=== PATIENT | male | born 1955 | race Caucasian/White ===

== ENCOUNTER → 2019-12-30 09:12 | Outpatient (BNVA) | payer BC, SELFPAY | PROVIDERS: Family Provider Nurse Practitioner Family; PCP Nurse Practitioner Family; Visit Provider Urology | DX: R97.20 Elevated prostate specific antigen [PSA] (principal); N40.1 Benign prostatic hyperplasia with lower urinary tract symptoms | CPT/HCPCS: 81001; 84153 ==

== ENCOUNTER → 2022-08-30 09:44 | Outpatient (BNVA) | payer MEDICARE, SELFPAY | PROVIDERS: Family Provider Nurse Practitioner Family; PCP Nurse Practitioner Family; Referring Provider Nurse Practitioner Family; Visit Provider Student in an Organized Health Care Education/Training Program | DX: M25.569 Pain in unspecified knee (principal); M17.11 Unilateral primary osteoarthritis, right knee; E11.9 Type 2 diabetes mellitus without complications | CPT/HCPCS: 36415; 80053; 83036; 85025; 99204 ==

== ENCOUNTER → 2022-08-30 10:21 | Outpatient (BNVA) | payer MEDICARE, SELFPAY | PROVIDERS: Family Provider Nurse Practitioner Family; PCP Nurse Practitioner Family; Referring Provider Nurse Practitioner Family; Visit Provider Student in an Organized Health Care Education/Training Program | DX: M17.11 Unilateral primary osteoarthritis, right knee (principal); E11.9 Type 2 diabetes mellitus without complications; Z79.84 Long term (current) use of oral hypoglycemic drugs; Z79.4 Long term (current) use of insulin | CPT/HCPCS: 73560; 73565 ==

== ENCOUNTER → 2024-10-07 13:04 | Outpatient (BNVA) | payer MEDICARE, SELFPAY | PROVIDERS: PCP Nurse Practitioner Acute Care; Visit Provider Physician Assistant | DX: M17.11 Unilateral primary osteoarthritis, right knee (principal); M25.569 Pain in unspecified knee | CPT/HCPCS: 73560; 73565; 99214 ==

== ENCOUNTER → 2024-11-11 14:04 | Outpatient (BNVA) | payer MEDICARE, SELFPAY | PROVIDERS: PCP Nurse Practitioner Acute Care; Visit Provider Physician Assistant | DX: M17.11 Unilateral primary osteoarthritis, right knee (principal) | CPT/HCPCS: 99213 ==

== ENCOUNTER 2024-12-07 12:21 | Outpatient (CLI) | payer MEDICARE, SELFPAY ==
--- NOTE | 2024-12-07 13:00 | CT_ITS ---
WS: [id number] CT RIGHT knee, noncontrast HISTORY: M17.11 - Unilateral primary osteoarthritis, right knee TECHNIQUE: Protocol for [facility] total knee replacement has been obtained. This includes axial imaging through the RIGHT hip, RIGHT knee and RIGHT ankle. DLP: 1031.47 mGy.cm COMPARISON: None available. Hips: Mild narrowing of the SI joints. No destructive bone lesions. Fat- containing RIGHT inguinal hernia. RIGHT knee: Advanced tricompartment joint space narrowing with osteophytes. Small suprapatellar joint effusion. Scattered popliteal artery atherosclerotic plaque. RIGHT ankle: Negative. CT/CT knee RT [facility] [id number] IMPRESSION: CT imaging provided for [facility] robotic total knee replacement.
== END 2024-12-07 12:22 | disposition home or self-care (01) ==
LOC: RAD 12:24
PROVIDERS: PCP Nurse Practitioner Acute Care; Visit Provider Student in an Organized Health Care Education/Training Program
DX: M17.11 Unilateral primary osteoarthritis, right knee (principal); K40.90 Unilateral inguinal hernia, without obstruction or gangrene, not specified as recurrent; M25.761 Osteophyte, right knee; M25.461 Effusion, right knee; I70.208 Unspecified atherosclerosis of native arteries of extremities, other extremity
CPT/HCPCS: 73700

== ENCOUNTER → 2024-12-28 15:38 | Outpatient (BNVA) | payer MEDICARE, SELFPAY | PROVIDERS: PCP Nurse Practitioner Acute Care; Visit Provider Family Medicine | DX: I25.10 Atherosclerotic heart disease of native coronary artery without angina pectoris (principal); J44.9 Chronic obstructive pulmonary disease, unspecified; E11.9 Type 2 diabetes mellitus without complications | CPT/HCPCS: 80053; 80061; 81000; 83735; 83880; 85025 ==

== ENCOUNTER 2024-12-31 11:23 | Outpatient (CLI) | payer MEDICARE, SELFPAY ==
[2024-12-31 12:21] LABS: Add Urine Microscopic? NO
[2024-12-31 12:23] LABS: Hematocrit 50.9 % (37-53); Hemoglobin 16.10 g/dL (11.27-16.99); Mean Corpuscular HGB Conc 31.6 g/dL (30-55); Mean Corpuscular Hemoglobin 27.2 pg (27-33); Mean Corpuscular Volume 86.0 fl (82-101); Nucleated Red Blood Cells % 0 %; Platelet Count 190 10^3/cmm (157-399); Red Blood Count 5.92 10^6/uL (3.85-5.65); White Blood Count 10.60 10^3/uL (3.29-11.43)
[2024-12-31 12:37] LABS: Glucose Urine UA 3+ (Normal); Nitrate Urine Negative (Negative)
[2024-12-31 12:42] LABS: Specific Gravity, Urine 1.045 (1.005-1.030)
[2024-12-31 12:43] LABS: Charge for UA Resulting for Rev
[2024-12-31 12:47] LABS: Alanine Aminotransferase 24 U/L (0-41); Albumin Level 4.3 g/dL (3.5-5.2); Alkaline Phosphatase 75 U/L (40-130); Anion Gap 18.9 (5-19); Aspartate Amino Transferase 19 U/L (0-40); Blood Urea Nitrogen 20 mg/dL (8-23); Calcium 10.0 mg/dL (8.5-10.5); Carbon Dioxide 24 mmol/L (22-29); Chloride 98 mmol/L (98-107); Globulin 3.0 g/dL (1.3-4.6); Glucose 174 mg/dL (65-115); Osmolality Calculated 289 mOsm/kg (285-295); Potassium 4.9 mmol/L (3.5-5.1); Sodium 136 mmol/L (136-145); Total Protein 7.3 g/dL (6.6-8.7)
[2024-12-31 12:49] LABS: Estmated Average Glucose 160; Hemoglobin A1C 7.2 % (4.0-6.0)
== END 2024-12-31 11:24 | disposition home or self-care (01) ==
LOC: LAB 11:25
PROVIDERS: PCP Nurse Practitioner Acute Care; Visit Provider Student in an Organized Health Care Education/Training Program
DX: Z01.818 Encounter for other preprocedural examination (principal); E11.9 Type 2 diabetes mellitus without complications
CPT/HCPCS: 36415; 80053; 81003; 83036; 85025

== ENCOUNTER 2025-01-04 15:32 | Observation (INO) | payer MEDICARE, SELFPAY ==
[2025-01-04] VITALS (24 sets, daily range): BP systolic 112–157; BP diastolic 67–92; PULSE 74–90; RESP 12–18; TEMP 36.1–36.8; O2SAT 91–97; BMI 36.1
[2025-01-04] MEDS: acetaminophen 1,000 MG/100 ML PIGGYBACK 400 MG IV ×3 (06:13→19:28)
--- NOTE | 2025-01-04 06:55 | PC.NURSE ---
Dr Agee place Ropivacine [address] in Right knee. Pt tolerated well.
--- NOTE | 2025-01-04 06:57 | ANES.PREANE2 ---
Pre-Anesthetic Assessment Height/Weight: Height 1.78 m Weight 114.305 kg Temp Pulse Resp BP Pulse Ox O2 Del Method 97.3 F L 88 18 131/92 94 Room Air 01/04/25 06:00 01/04/25 06:00 01/04/25 06:00 01/04/25 06:00 01/04/25 06:00 01/04/25 06:00 Operation Date: 01/04/25 07:00 Proposed Procedures p RIGHT Allan Robot Total Knee Arthroplasty(Right) - Kj Peterson DO Familial anesthetic complications: None Was Beta Quinn taken within 24 hours: Yes Was Clonidine taken within 24 hours: N/A Last intake: Intake Last Liquid Date 01/04/25 Last Liquid Time 19:30 Last Solid Date 01/03/25 Last Solid Time 19:30 Social No alcohol and No tobacco Exam alert, oriented x 3, clear to auscultation bilaterally and regular rate & rhythm Airway Mallampati: Class IV Pulmonary Chronic Obstructive Pulmonary Disease CV/HEM Coronary Artery Disease (2 stents 2 years ago) and Hypertension GI Gastroesophageal Reflux Disease Metabolic Diabetes Mellitus, Hyperlipidemia and Morbid Obesity Anesthetic Plan ASA status: 3 Anesthesia: General and Regional (specify below) Risk of > 500 ml blood loss (7ml/kg in children): No Other Pertinent Information Plavix on Medications/Allergies Home Medications ?Medication ?Instructions ?Recorded ?Confirmed ?Last Taken ?Type aspirin 81 mg tablet,delayed 81 mg PO DAILY 12/30/19 01/01/25 12/28/24 History release (Adult Aspirin Regimen) fluticasone propionate 50 2 spray intranasal DAILY 10/07/24 01/01/25 01/04/25 05:15 History mcg/actuation nasal spray,suspension nitroglycerin 0.4 mg sublingual 0.4 mg sublingual Q5M PRN Chest 10/07/24 01/01/25 Unknown History tablet Pain pen needle, diabetic 32 gauge x #1,200 ea 10/07/24 12/28/24 Unknown History (Marilin 2nd Gen Pen Needle) carvedilol 6.25 mg tablet 6.25 mg PO BID 12/28/24 01/01/25 01/04/25 05:15 History celecoxib 200 mg capsule 200 mg PO BID 12/28/24 01/01/25 12/28/24 History clopidogrel 75 mg tablet 75 mg PO QDAY 12/28/24 01/01/25 12/29/24 History empagliflozin 10 mg tablet 10 mg PO QDAY 12/28/24 01/01/25 01/01/25 History (Jardiance) eplerenone 25 mg tablet 25 mg PO QDAY 12/28/24 01/01/25 01/01/25 History fluticasone 250 mcg-salmeterol 50 1 inh inhalation BID 12/28/24 01/01/25 01/01/25 History mcg/dose blistr powdr for inhalation insulin glargine 100 unit/mL (3 80 unit SUBCUT BID 12/28/24 01/01/25 01/04/25 05:15 History mL) subcutaneous pen (Lantus 80 unit Solostar U-100 Insulin) isosorbide mononitrate 30 mg 30 mg PO QDAY 12/28/24 01/01/25 01/04/25 05:15 History tablet,extended release 24 hr metformin 500 mg tablet,extended 1,000 mg PO BID 12/28/24 01/01/25 01/01/25 History release 24 hr pantoprazole 40 mg tablet,delayed 40 mg PO QDAY 12/28/24 01/01/25 01/04/25 05:15 History release rosuvastatin 20 mg tablet 20 mg PO QDAY 12/28/24 01/01/25 01/01/25 History tirzepatide 7.5 mg/0.5 mL 7.5 mg SUBCUT .weekly 12/28/24 01/01/25 12/28/24 History subcutaneous pen injector (Mounjaro) finasteride 5 mg tablet 5 mg PO DAILY 12/31/24 01/01/25 01/01/25 History Allergies Allergy/AdvReac Type Severity Reaction Status Date / Time morphine Allergy Unknown Unknown Verified 01/04/25 05:51 tadalafil (From Cialis) Allergy Unknown Unknown Verified 01/04/25 05:51 [facility] Anesthesia Medical History (Updated 12/28/24 @ 16:09 by Jozef Villasenor MD) COPD (chronic obstructive pulmonary disease) Coronary artery disease Benign prostatic hyperplasia with lower urinary tract symptoms Elevated PSA Erectile dysfunction Diabetes Lumbar spondylolysis Surgical History Hx of left inguinal hernia repair History of surgery on right wrist Hx of arthroscopy of right knee Family History Father , AT AGE 69 LUNG CANCER Cancer Mother Cancer LUNG CANCER Social History Smoking and tobacco/nicotine status: never used tobacco/nicotine Alcohol intake: current Alcohol intake frequency: holidays/special occasions only Substance/Drug Use: unknown Adopted: No Caregiver/support person: No Lives independently: No Household members: spouse Marital status: Current occupational status: retired Anesthesia Procedures Nerve Block Nerve Block 1: Main Anesthesia: general anesthesia Time Out Performed: Yes Consent: requested by attending/covering physician, from patient, from other, risks and benefits reviewed and patient agrees to proceed Nerve block location: adductor canal (R) Anesthesia monitors applied: pulse oximetry, EKG, BP cuff and oxygen Nerve block position: supine Anesthetic Used: ropivicaine 0.5% (30 ml) and with decadron (4 mg) Ultrasound used to: recognize landmarks and visualize and ID femerol nerve Interscalene/Femoral BLK: 4 stimuplex 21 g needle used for position and inplane approach, visualize local anesthetic spread and no vascular puncture identified Injection: neg aspiration of heme Patient Tolerated Procedure: well Complications: none
--- NOTE | 2025-01-04 07:06 | W.PM.OPSFHP ---
Same Day Surgery H&P Indication for Procedure/HPI DATE OF PROCEDURE: January 04, 2025 CHIEF COMPLAINT/INDICATIONFOR SURGICAL PROCEDURE: Right knee DJD PREOP DIAGNOSIS: Right knee DJD PLANNED PROCEDURE: Operation Date: 01/04/25 07:00 Proposed Procedures p RIGHT Allan Robot Total Knee Arthroplasty(Right) - Kj Peterson, DO Medications/Allergies* Home Medications ?Medication ?Instructions ?Recorded ?Confirmed ?Type aspirin 81 mg tablet,delayed 81 mg PO DAILY 12/30/19 01/01/25 History release (Adult Aspirin Regimen) fluticasone propionate 50 2 spray intranasal DAILY 10/07/24 01/01/25 History mcg/actuation nasal spray,suspension nitroglycerin 0.4 mg sublingual 0.4 mg sublingual Q5M PRN Chest 10/07/24 01/01/25 History tablet Pain pen needle, diabetic 32 gauge x #1,200 ea 10/07/24 12/28/24 History 5/32 (Marilin 2nd Gen Pen Needle) carvedilol 6.25 mg tablet 6.25 mg PO BID 12/28/24 01/01/25 History celecoxib 200 mg capsule 200 mg PO BID 12/28/24 01/01/25 History clopidogrel 75 mg tablet 75 mg PO QDAY 12/28/24 01/01/25 History empagliflozin 10 mg tablet 10 mg PO QDAY 12/28/24 01/01/25 History (Jardiance) eplerenone 25 mg tablet 25 mg PO QDAY 12/28/24 01/01/25 History fluticasone 250 mcg-salmeterol 50 1 inh inhalation BID 12/28/24 01/01/25 History mcg/dose blistr powdr for inhalation insulin glargine 100 unit/mL (3 80 unit SUBCUT BID 12/28/24 01/01/25 History mL) subcutaneous pen (Lantus Solostar U-100 Insulin) isosorbide mononitrate 30 mg 30 mg PO QDAY 12/28/24 01/01/25 History tablet,extended release 24 hr metformin 500 mg tablet,extended 1,000 mg PO BID 12/28/24 01/01/25 History release 24 hr pantoprazole 40 mg tablet,delayed 40 mg PO QDAY 12/28/24 01/01/25 History release rosuvastatin 20 mg tablet 20 mg PO QDAY 12/28/24 01/01/25 History tirzepatide 7.5 mg/0.5 mL 7.5 mg SUBCUT .weekly 12/28/24 01/01/25 History subcutaneous pen injector (Mounjaro) finasteride 5 mg tablet 5 mg PO DAILY 12/31/24 01/01/25 History Allergies/Adverse Reactions Allergy/AdvReac Type Severity Reaction Status Date / Time morphine Allergy Unknown Unknown Verified 01/04/25 05:51 tadalafil (From Cialis) Allergy Unknown Unknown Verified 01/04/25 05:51 Pertinent History/Comorbid Conditions* Medical History (Updated 12/28/24 @ 16:09 by Jozef Villasenor MD) COPD (chronic obstructive pulmonary disease) Coronary artery disease Benign prostatic hyperplasia with lower urinary tract symptoms Elevated PSA Erectile dysfunction Diabetes Lumbar spondylolysis Surgical History (Updated 12/30/19 @ 12:41 by Izaiah Hill MD) Hx of left inguinal hernia repair History of surgery on right wrist Hx of arthroscopy of right knee Family History (Updated 12/22/19 @ 10:58 by TIFFANI Gleason) Father, AT AGE 69 LUNG CANCER Cancer Father Mother LUNG CANCER Social History Smoking and tobacco/nicotine status: never used tobacco/nicotine Alcohol intake: current Alcohol intake frequency: holidays/special occasions only Substance/Drug Use: unknown Adopted: No Caregiver/support person: No Lives independently: No Household members: spouse Marital status: Current occupational status: retired Pertinent Exam Findings alert, oriented x 3, operative site marked and procedure specific exam findings Please refer to detailed orthopedic examination on 11/11/2024 listed below: Right Knee exam -Patella crepitus with range of motion and positive joint effusion - full ROM -Medial lateral joint line tenderness -Negative Barbara's -Negative valgus, negative varus -negative Surekha's test with pain and no clicking -Patient can wiggle toes and has a pedal pulse of 2+. Recommendations Risks and benefits of procedure reviewed and Patient/family agree to proceed Surgery/Procedure today Other Plans: Plan to proceed to the OR today for right total knee arthroplasty?Allan robotic assisted. Patient is cleared the preoperative clearance process we detailed the ins and outs of the procedure the risk benefits complication alternatives surgical nonsurgical treatment options. Understanding risk of surgery patient elects proceed with surgical invention all questions answered at this time. His A1c is 7.20 he is cleared the preoperative clearance process, no injections in the last 90 days. Understanding his risk of surgery patient like to proceed with surgical invention all questions answered at this time. Coding Level of Care Code Acute Code for Chg Ralph
[2025-01-04] MEDS: ceFAZolin 2,000 MG in sodium chloride 0.9% (plus) 50 ML 100 MG IV ×3 (07:09→20:00)
[2025-01-04] MEDS: tranexamic acid 1,000 MG/100 ML PREMIX 600 MG IV ×2 (07:20→14:41)
[2025-01-04] MEDS: tranexamic acid 1,000 mg/10mL SDV 1000 MG XX (07:56)
[2025-01-04 08:38] LABS: Hematocrit 48.4 % (37-53); Hemoglobin 15.50 g/dL (11.27-16.99); Mean Corpuscular HGB Conc 32.0 g/dL (30-55); Mean Corpuscular Hemoglobin 26.6 pg (27-33); Mean Corpuscular Volume 83.0 fl (82-101); Nucleated Red Blood Cells % 0 %; Platelet Count 197 10^3/cmm (157-399); Red Blood Count 5.83 10^6/uL (3.85-5.65); White Blood Count 8.52 10^3/uL (3.29-11.43)
[2025-01-04 08:53] LABS: Anion Gap 19.0 (5-19); Blood Urea Nitrogen 19 mg/dL (8-23); Calcium 9.1 mg/dL (8.5-10.5); Carbon Dioxide 23 mmol/L (22-29); Chloride 99 mmol/L (98-107); Creatinine Clr Calc Pharmacy 113.4567; Glucose 162 mg/dL (65-115); Osmolality Calculated 290 mOsm/kg (285-295); Potassium 4.0 mmol/L (3.5-5.1); Sodium 137 mmol/L (136-145)
[2025-01-04] MEDS: ROPivacaine 0.2% Premix 100 mL 200 MG INTRA-ARTI (09:15)
--- NOTE | 2025-01-04 09:23 | P.BOP_ITS ---
Date of Procedure: 01/04/2025 Surgeon: Kj Peterson DO Rv Service Technician(s): Faraz Peterson PA-C Procedure(s) performed: Right total knee arthroplasty?Allan robotic assisted Findings of the procedure(s): Underwent procedure as planned without issues or complications taken recovery in stable condition Estimated blood loss: 25 mL Specimen(s) removed: Tibia femur patellar bone cuts removed Post-operative diagnosis: Right knee DJD
--- NOTE | 2025-01-04 09:24 | PM.OP ---
Operative Report Date of procedure: January 04, 2025 Surgeon: Kj Peterson DO Navigation Teacher: Faraz Peterson PA-C: PA was necessary for assistance in this case with leg positioning retraction and protection of neurovascular structures as well as assistance in implantation wound closure and dressing application. Procedure: Preoperative diagnosis: Right knee degenerative joint disease Post-op diagnosis: Same Procedure done: Right total knee arthroplasty, cemented?robotic assisted Allan Implants: Vivian triathlon size 7 femur CR cemented?Right Vivian triathlon size? 6 tibia universal baseplate cemented Spencer triathlon symmetric patella size 36 mm Vivian triathlon polyethylene 11mm Surgeon: Kj Peterson DO Estimated blood?loss: 25 mL Tourniquet 73minutes IV fluids: 1600 mL Urine output: 200 mL Complications: None Condition: stable Disposition: floor Brief History: Patient is a 69-year-old female with with chronic?Right knee degenerative joint disease.? Patient has been worked up in the outpatient setting in the orthopedic office at this point time through shared decision making given? gwve-nt-buak arthritis as well as failed conservative treatment, and pt would?like to proceed with a?Right total knee arthroplasty.? Through shared decision making elected to proceed with surgical intervention for?Right total knee arthroplasty?Allan robotic assisted.? We talked about continued conservative treatment and surgical intervention as far as the risk benefits complications alternatives surgical and nonsurgical treatment options.? At this point time understanding patient risks with surgery he agrees to proceed with surgical intervention.? Once again? risk with surgery include but are not?limited to make it better make it worse blood clot, heart attack, stroke, on the table, infection, injury to nerves or vessels, persistent pain, arthrofibrosis, implant failure.? Understanding these risks patient agrees to proceed with surgical intervention consent was obtained in the preoperative holding area.? All questions answered. Procedure: Patient was seen and evaluated in the preoperative holding area.? Consent was reviewed and signed with patient with plan for?Right total knee arthroplasty.? All questions answered.? Correct extremity marked.? Patient seen and evaluated by the anesthesia department and once cleared for surgery was taken back to the operative suite.? Patient was placed into a supine position on the OR table.? All bony prominences were well-padded.? Patient was appropriately secured to the bed.? Patient underwent anesthesia per the anesthesia department.? Patient received anesthesia and? Paz catheter was placed.? A nonsterile tourniquet was applied to the?Right thigh.? At this point in time a final timeout performed.? Patient received appropriate preoperative antibiotics and TXA. Next the?Right?lower extremity was then prepped and draped in standard orthopedic fashion. Esmarch tourniquet was used exsanguinate the?Right?lower extremity.? Tourniquet was insufflated to 250 mmHg. A standard anterior incision was made over midline of the knee.? Sharp scalpel excision through skin and subcutaneous tissue full-thickness skin flaps were made.? Fascia was elevated off of the extensor retinaculum was stable with medial parapatellar arthrotomy was then made.? The performed standard sequential releases..? Immediately on entry into the joint patient was found to have severe eburnated bone and tricompartmental arthritic changes noted.? With significant osteophyte formation.? Next the the patella was then stuffed and the knee was then flexed.?? Delaney was placed superiorly around the anterior aspect of the femur this was freed of synovium and I subsequently then placed by 2 femur pins to establish my femur arrays for the Allan robot.? These were then placed bicortically and? femur array was then appropriately secured with appropriate visualization.? Next attention was turned towards the tibial rays.? These were then drilled sequentially bicortically in parallel fashion and intraincisional.? I then placed my guide as well as my tibial array on in place.? This was appropriately secured and had excellent visualization with the Allan robot.? Next the tibial checkpoint as well as femur checkpoint were then placed.? At this point time I then subsequently established my head center as well as my medial?lateral malleoli as well as my checkpoints.? Next utilizing standard Allan technology I then mapped out the appropriate points and confirmation points around the femur as well as the tibia in standard fashion.? Once this was then done I then removed all osteophytes in preparation for dynamic testing.? All osteophytes were removed as well as I removed the ACL and the PCL was excised due to its significant tearing and degeneration noted.? At this point time the knee was brought into full extension and we performed our standard evaluation of our gap balancing stressing his?ligaments and extension as well as flexion appropriate adjustments were made to have appropriate gap balancing in both flexion and extension.? Patient had varus deformity and flexion contracture of roughly 10 to 15 degrees we made satisfactory adjustments to correct deformity within patient's ligamentous tolerances and plan for final cuts. We get a preoperative plan evaluating our implants which was a size 7 femur and a size 6 tibia.? Next we brought in the Allan robot and sequentially made our femur cuts.? All excess bony cuts were then removed.? Finally we made our tibial cut.? Once this was done a standard PCL retractor was then placed into this position I excised the medial and?lateral meniscus.? The tibial cut was then subsequently removed all excess bony debris was removed.? I then utilized a?lamina carroting machine offbearer and remove the posterior osteophytes.? At this point time sized the tibia and confirmed this was a size 6.? I utilized our blunt probe to establish rotation of tibial implant.? Once this was done I then placed my tibia size 6 trial in appropriate position and then subsequently placed tibial pins to hold this into place, and trialed up to a size 11 mm poly as well as a size 7 femur which was appropriately impacted in place knee was then subsequently brought into extension. Trials were then assessed,? this was stable with varus valgus stress in extension as well as had symmetrical translation when brought into flexion demonstrating symmetrical gaps. I had excellent balance gaps in flexion and extension with varus and valgus stresses.? At this point I was satisfied with these implants these were then verified and opened on the back table size 6 tibia, size 7 femur,? size 11 mm polythickness.? We did confirm appropriate gap balancing and stresses as well as alignment utilizing? Allan and were satisfied with this plan.? ?At this point time with my trials in place I then towel clip the patella everted this made appropriate measurements subsequently utilizing freehand technique performed by patellar resurfacing this was confirmed to be appropriate resection and subsequently sized to be a 36 mm symmetric.? My drill peg guides were then clamped and appropriate position and appropriate position in the patella for appropriate tracking and parallel with the joint.? Pegs were drilled trial implant was placed and the knee was then subsequently ranged and found to have excellent patellar tracking.? Femur pegs were then drilled.?All checkpoints as well as guidepins and arrays were removed and appropriate counts made. Satisfied with our tibial placement rotation I then utilized the keel punch and prepped the tibia.? At this point time all of our trial implants were removed.? ? The wound bed? was thoroughly irrigated and dried and prepped for cementation.? Cement was mixed on the back table.? Once cement was ready this was then covered onto the tibia and the tibial baseplate was then impacted and all excess cement was removed.? Next the polyethylene was then impacted into place on the tibial baseplate.? Next cement was placed onto the femur as well as under the femur implants and impacted in to place and all excess cement was extruded and removed.? Knee was taken into full extension? to clear all excess cement was removed.? Warm saline was placed over the joint.? I then towel clip patella and dried for cementation. cemented the patella into place.? This was all clamped and the cement was allowed to cure.? Thorough irrigation performed with pulse?lavage.? I then placed my periarticular injection while the cement was curing.? Once cured the knee was taken through range of motion and had excellent stability and gaps were balanced in flexion and extension.? Tourniquet was then deflated. hemostasis satisfactory with electrocautery. Vancomycin powder was placed in wound bed for antibiotic infection prophylaxis next I then subsequently closed the capsule with Ethibond suture as well as a running strata fix suture.? Knee was then taken through range of motion 30 times.? Next the skin was then closed in?layered fashion of interrupted Vicryl suture for subcutaneous tissue, patient was closed in flexion and skin was approximated with connie,? ?Incision was covered with feng incisional VAC, with ABDs soft roll and Johan wrap.? Patient was then awakened from anesthesia and taken to PACU in stable condition. Disposition: Patient taken to PACU in stable condition will be admitted to the floor for pain control PT/OT weight-bear as tolerated?Right?lower extremity dressing changes as needed, DVT prophylaxis. Pain control. Patient will receive appropriate postoperative antibiotics. patient will be seen today by the internal medicine team for medical management.? Patient will follow up with the office in 2 weeks.? Patient understands agrees with current plan.? All questions answered.
--- NOTE | 2025-01-04 09:35 | XR_ITS ---
WS: [id number] XR knee RT 1-2V [id number] REASON FOR EXAM: post L TKA FINDINGS: Total right knee arthroplasty. The components of the arthroplasty are intact and in proper position and alignment. No focal bone abnormality. XR/XR knee RT 1-2V [id number] IMPRESSION: Total right knee arthroplasty without significant abnormality.
[2025-01-04] MEDS: fentaNYL 50 mcg/mL INJ 2mL IVP ×2 (09:48→09:58)
--- NOTE | 2025-01-04 10:00 | PM.PACU ---
PACU note Narrative: Patient is a 69-year-old male that just underwent a right total knee arthroplasty. Pt transferred to PACU in stable condition. Dressing is dry. pt is awake and alert. pt can wiggle toes and plantarflex and dorsiflex foot. pt able to perform straight leg raise, Femoral nerve intact. Distal pulses are palpable toes are warm and well-perfused. Cap refill is normal and under 2 seconds. Sensation to foot is intact. Pain is controlled. Exam: awake Disposition: admitted
[2025-01-04] MEDS: HYDROmorphone 1 mg/mL INJ 1ml 0.5 MG IVP ×2 (10:07→10:16)
--- NOTE | 2025-01-04 10:23 | PC.NURSE ---
report called to Rochelle DRAPER RN
--- NOTE | 2025-01-04 10:25 | ANE.PACU2 ---
Inpatient post-anesthesia follow up: Airway intact: Yes Vital signs: Temperature 97.1 F Pulse Rate 78 Respiratory Rate 15 Blood Pressure 123/70 Pulse Oximetry 96 Oxygen Delivery Me thod Room Air Oxygen Flow Rate 2 Fraction of Inspir ed Oxygen Hydration adequate: Yes Nausea and vomiting: No Pain level: 1 Mental status: Baseline
--- NOTE | 2025-01-04 10:37 | PM.CONSULT ---
Providers/Reason For Consult Consulting Physician/Specialty*: Hospitalist Reason for Consult*: Medical management Attending Physician: Kj Peterson DO Primary Care Provider: Dani Fountain NP History of Present Illness History of Present Illness Bassem Martinez is a 69 year old male with a history of coronary artery disease with prior coronary stent placement (approximately 2022), diabetes mellitus on insulin, chronic obstructive pulmonary disease (COPD), benign prostatic hyperplasia (BPH), and osteoarthritis. Underwent elective right total knee arthroplasty with reported estimated blood loss of 25 mL and 1600 cc of fluids administered intraoperatively. Post-operatively placed in observation with plans for reassessment, pain control, physical therapy assessment, and discharge planning. Reports knee pain after surgery. Denies fever, chills, sore throat, runny nose, sneezing, cough, nausea, vomiting, or diarrhea. Denies chest pain or pressure, leg swelling, melena, hematochezia, or hematuria. For diabetes, reports using long-acting insulin 80 units in the morning and 80 units at night (insulin glargine) plus metformin; does not routinely use short-acting insulin at home. States home blood sugars are ?about 140-50s? For COPD, is not on home oxygen and uses an inhaler twice daily. Former smoker (quit in the ). No known diagnosis of sleep apnea or prior sleep study; bed partner reports observed breathing pauses at night. Expressed thirst and request for fluids post-operatively; diet advancement discussed once fully awake after anesthesia. Review of Systems Const: Denies: fever(s), chills, body aches or malaise ENMT: Denies: throat pain Card: Denies: chest pain, edema, pre-syncope or dyspnea on exertion Resp: Denies: dyspnea, productive cough, change in phlegm color or hemoptysis GI: Denies: abdominal pain, nausea, vomiting, diarrhea, constipation, hematochezia or melena : Denies: flank pain, difficulty urinating, urinary frequency or hematuria Musc: Denies: back pain, joint swelling or joint redness Skin/Breast: Denies: rash or new lesions Neuro: Denies: headache(s) or confusion Medications/Allergies Home Medications ?Medication ?Instructions ?Recorded ?Confirmed ?Last Taken ?Type aspirin 81 mg tablet,delayed 81 mg PO DAILY 12/30/19 01/01/25 12/28/24 History release (Adult Aspirin Regimen) fluticasone propionate 50 2 spray intranasal DAILY 10/07/24 01/01/25 01/04/25 05:15 History mcg/actuation nasal spray,suspension nitroglycerin 0.4 mg sublingual 0.4 mg sublingual Q5M PRN Chest 10/07/24 01/01/25 Unknown History tablet Pain pen needle, diabetic 32 gauge x #1,200 ea 10/07/24 12/28/24 Unknown History (Marilin 2nd Gen Pen Needle) carvedilol 6.25 mg tablet 6.25 mg PO BID 12/28/24 01/01/25 01/04/25 05:15 History celecoxib 200 mg capsule 200 mg PO BID 12/28/24 01/01/25 12/28/24 History clopidogrel 75 mg tablet 75 mg PO QDAY 12/28/24 01/01/25 12/29/24 History empagliflozin 10 mg tablet 10 mg PO QDAY 12/28/24 01/01/25 01/01/25 History (Jardiance) eplerenone 25 mg tablet 25 mg PO QDAY 12/28/24 01/01/25 01/01/25 History fluticasone 250 mcg-salmeterol 50 1 inh inhalation BID 12/28/24 01/01/25 01/01/25 History mcg/dose blistr powdr for inhalation insulin glargine 100 unit/mL (3 80 unit SUBCUT BID 12/28/24 01/01/25 01/04/25 05:15 History mL) subcutaneous pen (Lantus 80 unit Solostar U-100 Insulin) isosorbide mononitrate 30 mg 30 mg PO QDAY 12/28/24 01/01/25 01/04/25 05:15 History tablet,extended release 24 hr metformin 500 mg tablet,extended 1,000 mg PO BID 12/28/24 01/01/25 01/01/25 History release 24 hr pantoprazole 40 mg tablet,delayed 40 mg PO QDAY 12/28/24 01/01/25 01/04/25 05:15 History release rosuvastatin 20 mg tablet 20 mg PO QDAY 12/28/24 01/01/25 01/01/25 History tirzepatide 7.5 mg/0.5 mL 7.5 mg SUBCUT .weekly 12/28/24 01/01/25 12/28/24 History subcutaneous pen injector (Cezar) finasteride 5 mg tablet 5 mg PO DAILY 12/31/24 01/01/25 01/01/25 History Allergies Allergy/AdvReac Type Severity Reaction Status Date / Time morphine Allergy Unknown Unknown Verified 01/04/25 05:51 tadalafil (From Cialis) Allergy Unknown Unknown Verified 01/04/25 05:51 Current Medications Generic Name Dose Route Start Last Admin Trade Name Freq PRN Reason Stop Dose Admin Hydromorphone HCl 0.5 mg 01/04/25 09:42 01/04/25 10:16 Hydromorphone 1 Mg/Ml Inj 1ml IVP 01/05/25 09:42 0.5 mg Q10M PRN Administration Pain level 7-10 PACU Phase I PFSH Acute PFSH: Medical History COPD (chronic obstructive pulmonary disease) Coronary artery disease Benign prostatic hyperplasia with lower urinary tract symptoms Elevated PSA Erectile dysfunction Diabetes Lumbar spondylolysis Surgical History Hx of left inguinal hernia repair History of surgery on right wrist Hx of arthroscopy of right knee Family History Father , AT AGE 69 LUNG CANCER Cancer Mother Cancer LUNG CANCER Social History Smoking and tobacco/nicotine status: never used tobacco/nicotine Alcohol intake: current Alcohol intake frequency: holidays/special occasions only Substance/Drug Use: unknown Adopted: No Caregiver/support person: No Lives independently: No Household members: spouse Marital status: Current occupational status: retired Vitals/I&O/Wt Last Vital Signs Temp 97.1 F L 01/04/25 10:19 Pulse 78 01/04/25 10:19 Resp 15 01/04/25 10:19 BP 123/70 01/04/25 10:19 Pulse Ox 96 01/04/25 10:19 O2 Del Method Room Air 01/04/25 10:19 O2 Flow Rate 2 01/04/25 09:59 01/03/25 01/04/25 01/04/25 22:59 06:59 14:59 Intake Total 100 / 100 750 / 750 Output Total 225 / 225 Balance 100 / 100 525 / 525 Weight last 48 hrs Weight 114.305 kg Physical Exam Const: COMMON NORMALS: patient oriented x3 and alert GENERAL APPEARANCE: cooperative ORIENTATION/CONSCIOUSNESS: Yes awake HENMT: COMMON NORMALS: oropharynx normal Neck/C-Spine: COMMON NORMALS: no JVD Resp: COMMON NORMALS: normal respiratory effort and clear to auscultation bilaterally AUSCULTATION: clear to auscultation bilaterally Cardio: COMMON NORMALS: no JVD, regular rhythm, S1 normal heart sound present, S2 normal heart sound present and No murmurs present (Cardio) RHYTHM: regular rhythm HEART SOUNDS: S1 normal heart sound present and S2 normal heart sound present GI: COMMON NORMALS: Normal to inspection, nondistended, normoactive bowel sounds present, Soft to palpation and non-tender PALPATION: Yes Soft to palpation Extremity: COMMON NORMALS: no joint enlargement and no pedal edema NARRATIVE EXTREMITY EXAM: R knee in post-op dressing. Cool pack. Leg is perfused, warm. He can move his foot and toes. Neuro: COMMON NORMALS: patient oriented x3 and moves all extremities SENSORIUM/ORIENTATION: Yes alert Skin: COMMON NORMALS: no rashes or lesions noted GENERAL SKIN EXAM: no rashes or lesions noted Data 01/04/25 06:15 01/04/25 06:15 A&P Assessment and plan 1. S/P total knee arthroplasty: Post-operative status after right total knee arthroplasty : Uneventful elective right TKA; EBL 25 mL; 1600 cc fluids; observation status; pending reassessment. Reviewed vitals, CBC, BMP, and knee X-ray reviewed. Reviewed surgical note. Discussed with orthopedic surgeon. - Physical therapy assessment - Post-discharge planning with plan to return home if stable - When safe orthopedics will increase aspirin to 325 mg for VTE prophylaxis. Recheck blood counts tomorrow. - Provide incentive spirometer to promote deep breathing and prevent pneumonia - Advance diet and allow oral fluids as he is awake/alert post-anesthesia - Allow to sit up as permitted by surgical team Monitor saturations of saturation intermittently dipping down to 89%. Possible sleep apnea, would benefit from outpatient assessment at some point discussed with him and his . Discontinue IV fluids. Monitor for risk of fluid overload. Has not had other symptoms of CHF. Post-operative pain : Reports knee pain after surgery. - Acetaminophen for pain - Hydrocodone/acetaminophen as needed for moderate pain - IV Dilaudid as needed for severe breakthrough pain Plan: Coronary artery disease with prior stent : History of CAD with coronary stent (approximately 2022); on dual antiplatelet therapy and cardiac medications. - Continue clopidogrel (Plavix) - Temporarily when safe orthopedics will increase aspirin dose for venous thromboembolism (VTE) prophylaxis, then continue usual aspirin and clopidogrel thereafter (per orthopedics discussion) - Continue beta griffin (carvedilol) - Continue rosuvastatin (not on atorvastatin) Diabetes mellitus on insulin : On long-acting insulin at home; reports using 80 units morning and night; metformin at home. - Continue long-acting insulin (insulin glargine) - Use sliding scale insulin for correction as needed - Monitor blood glucose - Order consistent carbohydrate diet Chronic obstructive pulmonary disease (COPD) : Not on home oxygen; uses inhaler twice daily. - Use incentive spirometer to reduce post-operative pulmonary complications Benign prostatic hyperplasia (BPH) : Chronic condition on therapy. - Continue finasteride Possible obstructive sleep apnea : No prior sleep study; bed partner reports apneic episodes at night. - Consider outpatient sleep study evaluation discussed with patient and his Follow-up : Post-operative course with anticipated discharge home if stable. - Plan for discharge home likely tomorrow if no complications - Aspirin will be increased in dose once safe per Ortho per discussion with orthopedics regarding antiplatelet and VTE strategy PDMP PDMP Reviewed: Not Reviewed Consult Attestations Medical Necessity Statement: Observation for postoperative management after right TKA, post discharge planning and arrangements. and High MDM includes amount and/or complexity of data reviewed/ordered [ previous or external records, resulted lab(s)/test(s), ordered lab(s)/test(s) and other healthcare professional discussion] and described risk of complication, morbidity or mortality of management as documented Diagnoses S/P total knee arthroplasty Z96.659
--- NOTE | 2025-01-04 10:40 | PC.NURSE ---
Care transferred to Rochelle ARSHAD, T- 98.3, HR- 80, RR- 16, O2- 95, BP 117/66
[2025-01-04] MEDS: chlorhexidine gluconate 0.12% Btl 473 mL 30 ML MUCOUS MEM ×3 (12:26→22:59)
[2025-01-04] MEDS: oxyCODONE 5 mg IR Tab/Cap PO ×3 (12:49→23:00)
[2025-01-04] MEDS: sennosides-docusate Tablet 2 TAB PO (17:10)
[2025-01-04] MEDS: insulin glargine 100 units/1 mL 80 UNIT SUBCUT (17:10)
[2025-01-04] MEDS: calcium carb-vit d 600mg/400unit 1 Tablet 1 EACH PO (17:10)
[2025-01-04] MEDS: mupirocin oint 22 gm 1 APPLIC NASAL (17:11)
[2025-01-05] VITALS (7 sets, daily range): BP systolic 127–168; BP diastolic 75–87; PULSE 78–88; RESP 16–18; TEMP 36.6–36.7; O2SAT 94–96
[2025-01-05] MEDS: acetaminophen 1,000 MG/100 ML PIGGYBACK 400 MG IV (02:56)
[2025-01-05] MEDS: ceFAZolin 2,000 MG in sodium chloride 0.9% (plus) 50 ML 100 MG IV (03:13)
[2025-01-05] MEDS: sennosides-docusate Tablet 2 TAB PO (05:00)
[2025-01-05] MEDS: multivitamin therapeutic Tablet 1 TAB PO (05:01)
[2025-01-05] MEDS: calcium carb-vit d 600mg/400unit 1 Tablet 1 EACH PO (05:01)
[2025-01-05 05:09] LABS: Hematocrit 40.8 % (37-53); Hemoglobin 13.30 g/dL (11.27-16.99); Mean Corpuscular HGB Conc 32.6 g/dL (30-55); Mean Corpuscular Hemoglobin 27.1 pg (27-33); Mean Corpuscular Volume 83.1 fl (82-101); Nucleated Red Blood Cells % 0 %; Platelet Count 197 10^3/cmm (157-399); Red Blood Count 4.91 10^6/uL (3.85-5.65); White Blood Count 12.99 10^3/uL (3.29-11.43)
[2025-01-05] MEDS: oxyCODONE 5 mg IR Tab/Cap PO ×3 (05:09→13:10)
[2025-01-05] MEDS: chlorhexidine gluconate 0.12% Btl 473 mL 30 ML MUCOUS MEM (05:10)
[2025-01-05] MEDS: mupirocin oint 22 gm 1 APPLIC NASAL (05:11)
[2025-01-05 05:27] LABS: Blood Urea Nitrogen 17 mg/dL (8-23); Calcium 8.2 mg/dL (8.5-10.5); Carbon Dioxide 22 mmol/L (22-29); Chloride 101 mmol/L (98-107); Creatinine Clr Calc Pharmacy 113.4567; Glucose 212 mg/dL (65-115); Osmolality Calculated 290 mOsm/kg (285-295); Sodium 136 mmol/L (136-145)
[2025-01-05 05:32] LABS: Anion Gap 17.5 (5-19); Potassium 4.5 mmol/L (3.5-5.1)
[2025-01-05] MEDS: fluticasone nasal spray 16gm Btl 2 SPRAY INTRANASAL (05:39)
[2025-01-05] MEDS: insulin glargine 100 units/1 mL 80 UNIT SUBCUT (06:02)
--- NOTE | 2025-01-05 08:15 | P.PN_ITS ---
Subjective 2 Subjective: He could not sleep at night, states it was not pain keeping him up, just could not fall asleep. He states he is otherwise doing well today. He walked with PT yesterday and did well. Plan is to return home today. He denies shortness of breath, although feels his breathing feels a little shallow. He is using incentive spirometer. Has no chest pain or pressure. No nausea or vomiting. Vitals/I&O/Wt Last Vital Signs Temp 98.0 F 01/05/25 05:14 Pulse 88 01/05/25 05:14 Resp 16 01/05/25 05:14 BP 127/81 01/05/25 05:14 Pulse Ox 94 01/05/25 05:14 O2 Del Method Room Air 01/05/25 05:14 O2 Flow Rate 2 01/04/25 09:59 01/04/25 01/05/25 01/05/25 22:59 06:59 14:59 Intake Total 400 / 1150 100 / 1250 Output Total 4050 / 4675 1500 / 6175 Balance -3650 / -3525 -1400 / -4925 Weight last 48 hrs Weight 114.305 kg Physical Exam 2 Const: COMMON NORMALS: patient oriented x3 and alert GENERAL APPEARANCE: c ooperative ORIENTATION/CONSCIOUSNESS: Yes awake HENMT: COMMON NORMALS: oropharynx normal Neck/C-Spine: COMMON NORMALS: no JVD Resp: COMMON NORMALS: normal respiratory effort and clear to auscultation bilaterally AUSCULTATION: clear to auscultation bilaterally Cardio: COMMON NORMALS: no JVD, regular rhythm, S1 normal heart sound present, S2 normal heart sound present and No murmurs present (Cardio) RHYTHM: regular rhythm HEART SOUNDS: S1 normal heart sound present and S2 normal heart sound present GI: COMMON NORMALS: Normal to inspection, nondistended, normoactive bowel sounds present, Soft to palpation and non-tender PALPATION: Yes Soft to palpation Extremity: COMMON NORMALS: no joint enlargement and no pedal edema N ARRATIVE EXTREMITY EXAM: R knee in post-op dressing. Cool pack. Leg is perfused, warm. He can move his foot and toes. Neuro: COMMON NORMALS: patient oriented x3 and moves all extremities S ENSORIUM/ORIENTATION: Yes alert Skin: COMMON NORMALS: no rashes or lesions noted GENERAL SKIN EXAM: no rashes or lesions noted Data 01/05/25 05:02 01/05/25 05:02 A&P Assessment and plan 1. S/P total knee arthroplasty: He could not sleep much overnight, but otherwise is doing well. Breathing has been feeling a bit shallow, but denies feeling short of breath. Is using incentive spirometer, which is reinforced. Reviewed vitals, CBC, BMP, hemoglobin noted 13.3. Mild leukocytosis 12.99. Afebrile. He is continued on Plavix. Reasonable to stop aspirin for Eliquis given his stent has been a couple years ago. Consider resumption of aspirin after he is done with Eliquis as discussed with him. From hospital standpoint he is okay to return home today. Discussed with him following up with his primary provider for reassessment after surgery, reassessment of blood counts, follow-up on antiplatelet/anticoagulation. Plan: Coronary artery disease with prior stent : History of CAD with coronary stent (approximately 2022); had been on dual antiplatelet therapy and cardiac medications. Reasonable to withhold aspirin with addition of Eliquis. - Continue clopidogrel (Plavix) - Continue beta griffin (carvedilol) - Continue rosuvastatin (not on atorvastatin) Diabetes mellitus on insulin : On long-acting insulin at home; reports using 80 units morning and night; metformin at home. Reviewed blood glucose. Continue insulin. Continue consistent provider diet. - Continue long-acting insulin (insulin glargine) - Use sliding scale insulin for correction as needed - Monitor blood glucose - Order consistent carbohydrate diet Chronic obstructive pulmonary disease (COPD) : Not on home oxygen; uses inhaler twice daily. Budesonide was added while in hospital. - Encouraged incentive spirometer to reduce post-operative pulmonary complications Benign prostatic hyperplasia (BPH) : Chronic condition on therapy. - Continue finasteride Possible obstructive sleep apnea : No prior sleep study; bed partner reports apneic episodes at night. - Consider outpatient sleep study evaluation discussed with patient and his Follow-up : Post-operative course with anticipated discharge home if stable. - Plan for discharge home - Aspirin will be increased in dose once safe per Ortho per discussion with orthopedics regarding antiplatelet and VTE strategy PDMP PDMP Reviewed: Not Reviewed Attestations 2 Medical Necessity Statement*: Pending orthopedic reassessment with anticipated return home today. Diagnoses S/P total knee arthroplasty Z96.659
[2025-01-05] MEDS: APIXABAN 2.5 MG TABLET PO (09:15)
--- NOTE | 2025-01-05 12:34 | PM.DCS ---
Discharge Providers Date of Admission: 01/04/25 15:32 Date of Discharge: January 05, 2025 Attending Provider at Admission: Kj Peterson DO Attending Provider at Discharge: Kj Peterson DO Consults: Hospitalist?Dr. Cortés Primary Care Provider: Dani Fountain NP Diagnoses at Discharge Discharge Diagnosis 1. S/P total knee arthroplasty: Reason for Visit Reason for Visit: M17.11 Brief History: Status post right total knee arthroplasty?Allan robotic assisted Hospital Course Hospital Course Patient presented to the preoperative holding area with plan for right total knee arthroplasty after patient has been worked up in the outpatient setting for failed conservative treatment of right knee degenerative joint disease. Once cleared by anesthesia for surgery patient subsequently was taken back to the operative suite underwent anesthesia per anesthesia department and then subsequently underwent a right total knee arthroplasty. Procedure was performed without any complications patient was taken to PACU in stable condition patient recovered well in PACU and then was admitted to the floor postoperatively internal medicine was consulted and on board for medical management and assistance with care. Patient received appropriate PT/OT, postoperative antibiotics, postoperative TXA, pain control, postoperative DVT prophylaxis. Elevation and ice. Patient encouraged for knee range of motion allowed weightbearing as tolerated to the operative lower extremity. Dressing was changed as needed, labs were monitored daily. Patient recovered well postoperatively and worked well and progressed well with therapy. It was determined on postoperative day 1 the patient was stable for discharge from an orthopedic standpoint and medicine. Patient was comfortable with discharge and plan was discharged home. Patient received appropriate discharge instructions as well as pain medication and DVT prophylaxis postoperatively. Given appropriate instructions for dressing management. Patient will follow-up with Dr. Peterson/orthopedics in the office in 2 weeks. All questions answered. Understand if there is any issues questions or concerns and contact the office. Physical Exam Narrative: Right knee examination: Dressing on in place, clean dry and intact. No evidence of saturation. Patient has normal postoperative swelling and tenderness to palpation to the knee. Compartments are soft compressible,'s calf soft and nontender. Sensations intact to light touch distally. Distal pulses are palpable. Patient is able to wiggle toes as well as plantarflex and dorsiflex ankle. Discharge Data Studies Completed and Pending Completed Studies During Hospitalization Category Date Time Status XR knee RT 1-2V 70255 Routine Exams 01/04/25 09:35 Completed Pending at discharge Category Date Time Status Basic Metabolic Panel AM LABS Lab 01/06/25 04:00 Ordered Basic Metabolic Panel AM LABS Lab 01/07/25 04:00 Ordered Complete Blood Count w/Auto AM LABS Lab 01/06/25 04:00 Ordered Complete Blood Count w/Auto AM LABS Lab 01/07/25 04:00 Ordered Radiology Impressions Knee X-Ray 01/04/25 09:35 IMPRESSION: Total right knee arthroplasty without significant abnormality. Laboratory Results WBC 12.99 10^3/uL (3.29-11.43) H 01/05/25 05:02 RBC 4.91 10^6/uL (3.85-5.65) 01/05/25 05:02 Hgb 13.30 g/dL (11.27-16.99) 01/05/25 05:02 Hct 40.8 % (37-53) 01/05/25 05:02 MCV 83.1 fl (82-101) 01/05/25 05:02 MCH 27.1 pg (27-33) 01/05/25 05:02 MCHC 32.6 g/dL (30-55) 01/05/25 05:02 RDW 14.1 % (12.1-15.1) 01/05/25 05:02 Plt Count 197 10^3/cmm (157-399) 01/05/25 05:02 MPV 9.4 fL (7.4-10.4) 01/05/25 05:02 Neut % (Auto) 75.9 % 01/05/25 05:02 Lymph % (Auto) 13.5 % 01/05/25 05:02 [place] % (Auto) 9.9 % 01/05/25 05:02 Eos % (Auto) 0.1 % 01/05/25 05:02 Baso % (Auto) 0.2 % 01/05/25 05:02 Neut # (Auto) 9.86 10^3/uL (1.8-7.7) H 01/05/25 05:02 Lymph # (Auto) 1.8 10^3/uL (0.8-4.8) 01/05/25 05:02 [place] # (Auto) 1.3 10^3/uL (0.2-0.9) H 01/05/25 05:02 Eos # (Auto) 0.0 10^3/uL (0.0-0.8) 01/05/25 05:02 Baso # (Auto) 0.0 10^3/uL (0.0-0.1) 01/05/25 05:02 Nucleated RBC % (auto) 0 % 01/05/25 05:02 Nucleated RBCs # 0.0 /100WBC 01/05/25 05:02 Sodium 136 mmol/L (136-145) 01/05/25 05:02 Potassium 4.5 mmol/L (3.5-5.1) 01/05/25 05:02 Chloride 101 mmol/L (98-107) 01/05/25 05:02 Carbon Dioxide 22 mmol/L (22-29) 01/05/25 05:02 Anion Gap 17.5 (5-19) 01/05/25 05:02 BUN 17 mg/dL (8-23) 01/05/25 05:02 Creatinine 0.6 mg/dL (0.7-1.2) L 01/05/25 05:02 GFR Calculation 134.4 mL/min (90-130) H 01/05/25 05:02 Glucose 212 mg/dL (65-115) H 01/05/25 05:02 POC Glucose 163 mg/dL (70-110) H 01/05/25 07:47 Calculated Osmolality 290 mOsm/kg (285-295) 01/05/25 05:02 Calcium 8.2 mg/dL (8.5-10.5) L 01/05/25 05:02 Blood Type O Positive 01/04/25 06:36 Rho(D) Type Rh positive 01/04/25 06:36 Antibody Screen Negative 01/04/25 06:36 Vitals Last Vital Signs Temp 98.1 F 01/05/25 09:17 Pulse 86 01/05/25 09:17 Resp 17 01/05/25 09:17 BP 147/87 01/05/25 09:17 Pulse Ox 96 01/05/25 09:17 O2 Del Method Room Air 01/05/25 11:19 O2 Flow Rate 2 01/04/25 09:59 Discharge Plan Discharge Patient Disposition: Home Health Service Condition: Stable Prescriptions: New calcium carbonate-vitamin D3 [Calcium 600 + D(3)] 600 mg-10 mcg (400 unit) tablet 1 tab PO DAILY 30 Days Qty: 30 0RF Eliquis 2.5 mg tablet 2.5 mg PO BID 14 Days Qty: 28 0RF cefadroxil 500 mg capsule 500 mg PO BID 7 Days Qty: 14 0RF oxycodone 5 mg tablet 5 mg PO Q6H PRN (Reason: pain postop) 7 Days Qty: 28 0RF Continued fluticasone propionate 50 mcg/actuation spray,suspension 2 spray intranasal DAILY (DME) pen needle, diabetic [Marilin 2nd Gen Pen Needle] 32 gauge x 5/32 needle See Rx Instructions .ROUTE .MEDSUPPLY Qty: 1200 Rx Instructions: As directed nitroglycerin 0.4 mg tablet, sublingual 0.4 mg sublingual Q5M PRN (Reason: Chest Pain) Rx Instructions: do not exceed 3 doses per episode clopidogrel 75 mg tablet 75 mg PO QDAY carvedilol 6.25 mg tablet 6.25 mg PO BID celecoxib 200 mg capsule 200 mg PO BID Jardiance 10 mg tablet 10 mg PO QDAY eplerenone 25 mg tablet 25 mg PO QDAY fluticasone propion-salmeterol 250-50 mcg/dose blister with device 1 inh inhalation BID insulin glargine [Lantus Solostar U-100 Insulin] 100 unit/mL (3 mL) insulin pen 80 unit SUBCUT BID isosorbide mononitrate 30 mg tablet extended release 24 hr 30 mg PO QDAY metformin 500 mg tablet extended release 24 hr 1,000 mg PO BID pantoprazole 40 mg tablet,delayed release (DR/EC) 40 mg PO QDAY rosuvastatin 20 mg tablet 20 mg PO QDAY Mounjaro 7.5 mg/0.5 mL pen injector 7.5 mg SUBCUT .weekly finasteride 5 mg tablet 5 mg PO DAILY Rx Instructions: TAKE 1 TABLET DAILY Held aspirin [Adult Aspirin Regimen] 81 mg tablet,delayed release (DR/EC) 81 mg PO DAILY Hold Instructions: Resume on 01/19/25. [place] [employer] OK for DC: Orthopedics and Hospitalist Discharge Order = DC NOW: Discharge Order (Routine); Ordered 01/05/25 Ordered By: Kj Peterson Other Ambulatory Orders: Physical Therapy Eval and Treat Outpatient (Order) Timeframe: 3 Days Facility: [facility] - Location: Physical Therapy Ordered By: Kj Johnson Referrals: [facility] [Outside] Faraz Peterson PA [Physician Health Commissioner, Orthopedics] - 01/19/25 2:00 pm Dani Fountain NP [Primary Care Provider] - 01/15/25 9:20 am Discharge Diet: Regular Discharge Activity: Limit activity as instructed and Use walker/crutches as instructed Patient Instructions: Cefadroxil (By mouth), Oxycodone, Rapid Release (By mouth), Ondansetron (By mouth) (Zofrbradford, Zofran ODTVenusupemily), Apixaban (By mouth), How to Use an Incentive Spirometer (DC), Acute Wound Care (DC), Precautions after Total Joint Replacement Surgery (DC), Joint Replacement Surgery (DC), Total Knee Replacement (DC), Opioid Safety, Post Anesthesia Care, Patient Portal & Vijay Instructions Activity Restrictions/Additional Instructions: Orthopedic discharge instructions: Nadya Dressing--Keep dressing on and dry. After 3 days you can remove some of the dressing and shower. disconnect battery pack when showering. Nadya dressing will stay on until follow up appt in 2 weeks. The battery pack for the dressing will at 5-7 days. Battery pack can be removed and discarded once batteries . Patient may weight-bear as tolerate to the operative extremity Utilize walker as needed Encourage knee range of motion Encourage mobilization every 2 hours Encourage icing every couple hours Ice and elevate as needed for pain and swelling Take pain medication as prescribed Take antinausea medication as needed Take antibiotic as prescribed for infection prevention Pain medication can cause constipation. take [id number] stool softeners and or MiraLAX. Take prescribed Eliquis twice daily for the next 14 days for blood clot prevention Hold on the aspirin until 2 weeks May resume home Plavix May supplement for pain with Tylenol [id number] as needed(1000 mg every 8 hours-do not exceed more than 3000mg in 24-hour period) No baths or soaks Follow-up in the orthopedic office in 2 weeks Contact the office for any questions or concerns Discharge Attestations Time Spent in Discharge Care*: less than 30 min Quality Metrics Clinical Quality Measures [ No reported AMI, CVA or VTE this stay] Coding Level of Care Code Acute Code for Chg Fwd Diagnoses S/P total knee arthroplasty Z96.659
== END 2025-01-05 13:45 | disposition home health service (06) ==
LOC: OR 15:33 → OBGYN 15:33
PROVIDERS: Physician Assistant; Admitting Provider Student in an Organized Health Care Education/Training Program; PCP Nurse Practitioner Acute Care; Visit Provider Student in an Organized Health Care Education/Training Program
PROC: 8E0Y0CZ Robotic Assisted Procedure of Lower Extremity, Open Approach (ICD-10-PCS; CPT 27447; principal; 2025-01-04 07:00)
DX: M17.11 Unilateral primary osteoarthritis, right knee (principal); Z79.82 Long term (current) use of aspirin; K21.9 Gastro-esophageal reflux disease without esophagitis; Z79.84 Long term (current) use of oral hypoglycemic drugs; I25.10 Atherosclerotic heart disease of native coronary artery without angina pectoris; Z95.5 Presence of coronary angioplasty implant and graft; E11.9 Type 2 diabetes mellitus without complications; J44.9 Chronic obstructive pulmonary disease, unspecified; Z79.4 Long term (current) use of insulin; E66.01 Morbid (severe) obesity due to excess calories; Z68.36 Body mass index [BMI] 36.0-36.9, adult
CPT/HCPCS: 27447; 20985; 36415; 36416; 73560; 80048; 82962; 85025; 86850; 86900; 96372; 97110; 97116; 97161; 97165; 97530; A4216; C1713; C1776; G0378; J0131; J0169; J0690; J1100; J1171; J1815; J1885; J2405; J2704; J2795; J3010; J3373; J3490; J7120; J9999; L8699

== ENCOUNTER → 2025-01-19 14:29 | Outpatient (BNVA) | payer MEDICARE, SELFPAY | PROVIDERS: PCP Nurse Practitioner Acute Care; Visit Provider Physician Assistant | DX: Z98.890 Other specified postprocedural states (principal); Z96.659 Presence of unspecified artificial knee joint | CPT/HCPCS: 73560; 73565; 99024 ==

== ENCOUNTER 2025-02-17 10:00 | Outpatient (RCR) | payer MEDICARE, SELFPAY | END 2025-02-21 23:59 | disposition home or self-care (01) | LOC: WPT 10:00 | PROVIDERS: Visit Provider Physician Assistant | DX: Z47.1 Aftercare following joint replacement surgery (principal); Z96.659 Presence of unspecified artificial knee joint | CPT/HCPCS: 97110; 97112; 97140; 97161; 97530 ==

== ENCOUNTER → 2025-03-02 13:31 | Outpatient (BNVA) | payer MEDICARE, SELFPAY | PROVIDERS: PCP Nurse Practitioner Acute Care; Visit Provider Student in an Organized Health Care Education/Training Program | DX: Z96.651 Presence of right artificial knee joint (principal); Z01.89 Encounter for other specified special examinations | CPT/HCPCS: 73560; 73565; 99024 ==

== ENCOUNTER 2025-03-23 09:59 | Outpatient (RCR) | payer MEDICARE, SELFPAY | END 2025-03-23 13:37 | disposition home or self-care (01) | LOC: WPT 09:59 | PROVIDERS: Visit Provider Physician Assistant | DX: Z47.1 Aftercare following joint replacement surgery (principal); Z96.659 Presence of unspecified artificial knee joint | CPT/HCPCS: 97110; 97112; 97140; 97530 ==